=== PATIENT | female | born 1990 | race Caucasian/White ===

== ENCOUNTER → 2025-02-04 | Outpatient (REF) | payer BC ==
[~2025-02-04] MED LIST: IOPAMIDOL 370 MG/ML 100 ML INFUS..BTL INJ ONE; SODIUM CHLORIDE 0.9% 100 ML ONE
== END ==
LOC: CT 07:24
PROVIDERS: ATTEND Internal Medicine Cardiovascular Disease
DX: I20.9 Angina pectoris, unspecified (principal)
CPT/HCPCS: 75574; J7050; Q9967